=== PATIENT | female | born 1965 | race Hispanic/Latino ===

== ENCOUNTER 2017-09-18 16:27 | Emergency (ER) | payer MEDICAID ==
[2017-09-18 16:37] VITALS: PULSE 72; RESP 20; TEMP 98.4; O2SAT 98
--- NOTE | 2017-09-18 17:39 | ED PDOC ---
Lower Extremity Pain/Injury Time Seen by Provider: 09/18/17 16:44 Chief Complaint (Nursing): Lower Extremity Problem/Injury Chief Complaint (Provider): Bilateral foot pain History Per: Patient History/Exam Limitations: no limitations Onset/Duration Of Symptoms: Persistent Additional Complaint(s): 51yo female, with history of pacemaker, presents to ED with complaints of bilateral foot pain and swelling. Patient states she is homeless and walks a lot during the day, resulting in the pain and swelling. She denies any fever, chills, weakness, numbness, tingling. She denies any injury or trauma as well. Patient has no other medical complaints. Against Medical Advice - AMA Patient Left Against Medical Advice: The patient declines admission to the hospital and wishes to leave the Emergency Department. This action is against my medical advice. This decision was made with informed refusal. The patient was told that admission to the hospital is necessary. Explanation of the reasons why were discussed. The risks of leaving were explained to the patient and include, but are not limited to, worsening of known or currently unknown conditions, permanent disability and from undiagnosed or untreated conditions. The patient has the capacity to make this informed decision and understands my explanation of the current medical problem and risks of leaving. The patient voluntarily accepts these risks and signed an AMA form documenting our conversation. The patient was given the opportunity to ask questions and reconsider. The patient was encouraged to return to the Emergency Department at any time for further care. 09/18/17 17:20 Patient refused bloodwork, and is electing to leave AMA. Past Medical History Reviewed: Historical Data, Nursing Documentation, Vital Signs Vital Signs: Last Vital Signs Temp 98.4 F 09/18/17 16:33 Pulse 72 09/18/17 16:33 Resp 20 09/18/17 16:33 BP Pulse Ox 98 09/18/17 16:33 - Medical History PMH: Asthma, Back Problems, COPD Denies: Atrial Fibrillation, Cardia Arrhythmia, CHF, HTN, Hypercholesterolemia, Mitral Valve Prolapse, Peripheral Edema, Chronic Kidney Disease - Surgical History Surgical History: Denies: Pacemaker - Family History Family History: States: Unknown Family Hx - Home Medications Home Medications: Ambulatory Orders Medication Instructions Recorded Acetaminophen [Tylenol 325mg tab] 650 mg PO Q6 PRN #0 tab 07/01/16 Lisinopril [Zestril] 10 mg PO DAILY #30 tab 07/01/16 hydroCHLOROthiazide [Microzide] 12.5 mg PO DAILY #30 cap 07/01/16 - Allergies Allergies/Adverse Reactions: Allergies Allergy/AdvReac Type Severity Reaction Status Date / Time celecoxib [From Celebrex] Allergy SHORTNESS Verified 09/18/17 16:31 OF BREATH Review of Systems ROS Statement: Except As Marked, All Systems Reviewed And Found Negative (as per hpi) Constitutional: Negative for: Fever, Chills Musculoskeletal: Positive for: Foot Pain Neurological: Negative for: Weakness, Numbness Physical Exam - Reviewed Nursing Documentation Reviewed: Yes Vital Signs Reviewed: Yes - Physical Exam Appears: Positive for: Non-toxic, No Acute Distress Head Exam: Positive for: ATRAUMATIC, NORMAL INSPECTION, NORMOCEPHALIC Skin: Positive for: Normal Color Eye Exam: Positive for: Normal appearance Neck: Positive for: Supple Cardiovascular/Chest: Positive for: Regular Rate, Rhythm Respiratory: Positive for: Normal Breath Sounds. Negative for: Respiratory Distress Extremity: Positive for: Normal ROM (bilateral feet). Negative for: Tenderness , Pedal Edema, Deformity, Swelling - ECG O2 Sat by Pulse Oximetry: 98 (RA) Pulse Ox Interpretation: Normal Medical Decision Making Medical Decision Making: Impression: Bilateral foot pain Plan: -- CMP -- CBC -- Urinalysis Time: 1710 Patient declined bloodwork and is electing to leave the ER AMA. Scribe Attestation: Documented by Luann Hanna acting as a scribe for Jessica Griggs MD. Provider Attestation: All medical record entries made by the Scribe were at my direction and personally dictated by me. I have reviewed the chart and agree that the record accurately reflects my personal performance of the history, physical exam, medical decision making, and the department course for this patient. I have also personally directed, reviewed, and agree with the discharge instructions and disposition. Disposition - Clinical Impression Clinical Impression: Homelessness, Leg swelling - Disposition Referrals: [facility] [Outside] Disposition: Against Medical Advice Disposition Time: 17:30 Condition: STABLE Forms: [employer] (Romanian)
== END 2017-09-18 17:50 | disposition left against medical advice (07) ==
LOC: H.ER 16:27
DX: M79.89 Other specified soft tissue disorders (principal); Z59.0 Homelessness